=== PATIENT | female | born 1970 | race Caucasian/White ===

== ENCOUNTER → 2016-11-13 16:43 | Outpatient (CLI) | payer OTHER ==
[~2016-11-13 16:43] MED LIST: CYCLOBENZAPRINE10 MG PO; LISINOPRIL10 MG PO; MELOXICAM TAB 15M; OMEPRAZOLE CAP 20M; OXYCONTIN10 MG PO
[2016-12-25 06:23] VITALS: BMI 35.5
== END | disposition home or self-care (01) ==
LOC: D.MAMMO 10:45
DX: Z12.31 Encounter for screening mammogram for malignant neoplasm of breast (principal)

== ENCOUNTER → 2016-12-10 15:05 | Outpatient (CLI) | payer OTHER ==
[2016-12-25 06:23] VITALS: BMI 35.5
== END | disposition home or self-care (01) ==
LOC: D.MRI 15:05
DX: M54.5 Low back pain (principal); M25.561 Pain in right knee

== ENCOUNTER → 2016-12-19 17:08 | Outpatient (CLI) | payer OTHER ==
[2016-12-25 06:23] VITALS: BMI 35.5
== END | disposition home or self-care (01) ==
LOC: D.MAMMO 14:00
DX: R92.8 Other abnormal and inconclusive findings on diagnostic imaging of breast (principal)

== ENCOUNTER → 2016-12-21 14:38 | Outpatient (CLI) | payer OTHER ==
[2016-12-25 06:23] VITALS: BMI 35.5
== END | disposition home or self-care (01) ==
LOC: D.MAMMO 13:00
DX: R92.1 Mammographic calcification found on diagnostic imaging of breast (principal)

== ENCOUNTER 2016-12-25 05:19 | Day surgery (SDC) | payer OTHER ==
[2016-12-24 10:26] LABS: BASOPHILS 0.3 % (0.0-2.0); HEMOGLOBIN 17.2 g/dL (12-16); IMMATURE GRANULOCYTES 0.2 % (0-5); LYMPHOCYTES 35.3 % (15-50); MCH 31.8 pg (26.0-34.0); MCHC 33.7 g/dL (31.0-37.0); MCV 94.3 fL (80.0-100.0); MEAN PLATELET VOLUME 9.2 fL (7.4-10.4); MONOCYTES 7.8 % (2-11); NEUTROPHILS 51.4 % (40-80); PLATELET COUNT 193 10x3/uL (130-400); RBC 5.41 10x6/uL (4.00-5.40); RDW 13.4 % (11.5-14.5); WBC 6.6 10x3/uL (4.8-10.8)
[2016-12-24 10:36] LABS: CALC OSMOLALITY 277 mosm/kg (275-300); CALCIUM 8.9 mg/dL (8.5-10.1); CARBON DIOXIDE 32.2 mmol/L (21.0-32.0); CHLORIDE - SERUM 102 mmol/L (98-107); CREATININE - SERUM 0.6 mg/dL (0.6-1.3); GLUCOSE 82 mg/dL (74-106); POTASSIUM - SERUM 4.4 mmol/L (3.5-5.1); SODIUM 139 mmol/L (136-145); UREA NITROGEN 14 mg/dL (7-18); eGFR NON AFRICAN AMERICAN > 90 mL/min (90-120)
[~2016-12-25] VITALS: Ht 160 cm; Wt 90.7 kg
[~2016-12-25 05:19] MED LIST changes: -CYCLOBENZAPRINE10 MG PO; -OXYCONTIN10 MG PO
[2016-12-25 06:23] VITALS: BP 121/86; Ht 160 cm; Wt 90.7 kg
[2016-12-25] MEDS ORDERED: OXYCONTIN10 MG PO (09:09)
[2016-12-25] MEDS ORDERED: CYCLOBENZAPRINE10 MG PO (09:10)
--- NOTE | 2016-12-25 09:20 | NUR ---
THE PATIENT REPORTS CHRONIC PAIN TO HER LEFT LEG AT A 5 ON THE 0-10 SCALE BEFORE SURGERY
--- NOTE | 2016-12-25 11:58 | NUR ---
1030 IV DC WITH CATHER TIP INTACT
--- NOTE | 2017-01-01 16:33 | OP ---
PATIENT NAME: JOSUE ELLIS MEDICAL RECORD: [id number] :68 LOCATION:[facility] ADMISSION DATE: SURGEON: DANETTE ALEXANDER MD DATE OF OPERATION: 12/25/2016 PREOPERATIVE DIAGNOSIS: Right knee anterior cruciate ligament tear and medial meniscus tear. POSTOPERATIVE DIAGNOSES: 1. Right knee anterior cruciate ligament tear. 2. Right knee medial meniscus tear. 3. Right knee lateral meniscus tear. PROCEDURE PERFORMED: 1. Right knee ACL reconstruction using allograft. 2. Right knee partial medial meniscectomy. 3. Right knee partial lateral meniscectomy. SURGEON: Leno Alexander MD. ANESTHESIA: General with a block for postop pain. CONDITION: The patient tolerated the procedure well, was transferred to the recovery room in stable condition at the end of the procedure. OPERATIVE REPORT: The patient was taken to the operating room, placed in a supine position. General anesthesia was obtained. She did receive a block in the preop holding area. In the operating room, under general anesthesia, she has a physical exam performed which showed she had a positive Jose and positive pivot shift. Once this was accomplished, she then had her right knee prepped and draped in the standard fashion. After it was prepped and draped, the portal sites were marked and injected with 0.25% Marcaine with epinephrine. The anterolateral portal was made as well as the superior medial portal. Superior medial was used for the outflow, anterior lateral for the inflow. After this was accomplished the scope was used to verify the position of the outflow. I then proceeded, come down the medial gutter into the medial joint line; however, there was a notably a large piece of medial meniscus flipped up into the gutter. Dropping into the medial joint, I was able to verify that there was a large medial meniscus tear. An anteromedial portal was made at this juncture after the anterior medial portal was established. I then performed a partial medial meniscectomy taking off the portion of the meniscus that had flipped into the joint itself. Once this was accomplished, I then proceeded to move to the notch where the ACL was notably torn. No fibers intact. This was debrided with a shaver, debrided the notch area back where I could see the posterior wall. Once this was accomplished, I then proceeded to move to a xrhjkj-gf-btst position and checked her laterally. Laterally, she was noted to have a significant lateral meniscus tear. This was again debrided with a straight biter. Once this was accomplished, I then proceeded to move back to the notch, cleaned this area up following which I made a small incision over the anterior medial area of the knee. Doing this, I then placed the tibial aiming device, placed this into the stump of the previous ACL stump, bent the knee, flexed at 55-degree angle and placed a pin into the stump. Once it was verified, I then overdrilled this with size 10 as our allograft on the back table was measured at a size 10. I then proceeded to prep for the washer lock by placing the guide into the hole tapping this and overdrilling so that the OPERATIVE REPORT [id number] CALEBJOSUE MONICA washer would sit better on the cortex of the tibia. Once this was accomplished, I placed the jrnw-gjw-dxw guide again using a 10. I placed this in. I drilled over the top of this getting back to the back wall and verifying this prior to proceeding with drilling of the tunnel for the lateral meniscus tear. Once this was accomplished, I then proceeded to overdrilled this with a 4.5 drill bit and then drilled the first 30 mm of the tunnel and the tunnel measured between 55 and 60 mm. I then placed the marking this lyudmila on the graft. I then pulled the graft into the lyudmila on the 30 mm lyudmila, felt first locking the ToggleLoc on the lateral cortex then pulling it back verifying it was positioned then pulling the graft into the tunnel to the marked line following which I proceeded to cycle the knee through multiple cycles to really get the tension out of the graft itself. Once this was accomplished, I then proceeded to fix the tendon on the tibial side using a drill then measuring for the screw and then placing the screw while holding tension on the graft. This was place. Once this was accomplished, I then checked the knee again for Jose and the anterior drawer, these were both significantly improved. I therefore went ahead and checked the back and there was no notch impingement. There was no anterior wall impingement. I therefore cut the sutures, removed them, copiously irrigated, then closed with #1 Vicryl followed by 2-0 Vicryl then 3-0 Prolene. The portals were closed with 3-0 Prolene. She was then awakened and transferred to the recovery room in stable condition, having tolerated the procedure well. TRANSINT:[id number] Voice Confirmation ID: [id number] DOCUMENT ID: [id number] DANETTE ALEXANDER MD at 1633 CC: [id number] DICTATION DATE: 12/25/16917 ORTHOTIST: 12/25/16 1040 [facility] 12/25/16 [place] [id number] [place] [id number]
== END 2016-12-25 10:45 | disposition home or self-care (01) ==
LOC: D.OPS 05:19 → D.PAN 07:00 → D.OPS 07:35 → D.PAN 07:35 → D.OPS 10:45
PROVIDERS: Anesthesiology
DX: S83.511A Sprain of anterior cruciate ligament of right knee, initial encounter (principal); S83.241A Other tear of medial meniscus, current injury, right knee, initial encounter; S83.281A Other tear of lateral meniscus, current injury, right knee, initial encounter

== ENCOUNTER → 2017-04-19 08:32 | Outpatient (CLI) | payer OTHER ==
[2016-12-25 06:23] VITALS: BMI 35.5
[~2017-04-19 08:32] MED LIST changes: +CYCLOBENZAPRINE10 MG PO; +OXYCONTIN10 MG PO
== END | disposition home or self-care (01) ==
LOC: D.CT 08:30
DX: M48.06 Spinal stenosis, lumbar region (principal)

== ENCOUNTER → 2017-08-01 10:33 | Outpatient (CLI) | payer MEDICAID ==
[2016-12-25 06:23] VITALS: BMI 35.5
[~2017-08-01 10:33] MED LIST changes: +CYMBALTA60 MG PO; +MORPHINE SULFAT15 M4 PO; +NEURONTIN600 MG PO; +NORCO 7.5/325 T1 TA1 PO; -OMEPRAZOLE CAP 20M; +OMEPRAZOLE20 M1 PO; +PERCOCET 5-3251 TAB PO; +XANAX0.5 MG PO
== END | disposition home or self-care (01) ==
LOC: D.MRI 10:33
DX: M25.561 Pain in right knee (principal)

== ENCOUNTER 2017-08-20 05:25 | Day surgery (SDC) | payer MEDICAID ==
[2017-08-19 11:39] LABS: HEMATOCRIT 44.5 % (36.0-48.0); HEMOGLOBIN 14.7 g/dL (12-16); MCH 32.3 pg (26.0-34.0); MCV 97.8 fL (80.0-100.0); MEAN PLATELET VOLUME 8.7 fL (7.4-10.4); RBC 4.55 10x6/uL (4.00-5.40); RDW 13.1 % (11.5-14.5); WBC 6.4 10x3/uL (4.8-10.8)
[~2017-08-20 05:25] MED LIST changes: -PERCOCET 5-3251 TAB PO
[2017-08-20 11:51] VITALS: BP 141/84; BMI 39.7
[2017-08-20] MEDS ORDERED: PERCOCET 5-3251 TAB PO (14:11)
--- NOTE | 2017-08-20 14:30 | NUR ---
THE PATIENT IS SLEEPING AND WHEN AWAKENED SHE COMPLAINS OF A PAIN OF 8. SHE ALSO REPORTS HER PAIN EVERYDAY IS AND 8. SHE REPORTS TAKING NORCO AND MORPHINE DAILY FOR CHRONIC PAIN. THE PATIENT DOES NOT APPEAR TO BE IN ANY DISTRESS.
--- NOTE | 2017-08-20 15:40 | NUR ---
LEFT HAND PIV DC'D WITH TIP INTACT. PATIENT DRESSING IN PERSONAL CLOTHING. PATIENT WANTS TO TALK TO DR EVANS IF POSSIBLE, STATES THAT HE DIDN'T TALK TO FAMILY AFTER SURGERY, WANTS TO WAIT TO TALK TO HIM WHEN HE'S FINISHED WITH CURRENT SURGERY
--- NOTE | 2017-08-20 16:12 | OP ---
PATIENT NAME: JOSUE MARX MEDICAL RECORD: [id number] :68 LOCATION:[facility] ADMISSION DATE: SURGEON: FRANCISCO EVANS DO DATE OF OPERATION: 08/20/2017 PROCEDURE PERFORMED: Right knee arthroscopy with partial medial meniscectomy and abrasion chondroplasty of the patella. PREOPERATIVE DIAGNOSIS: Medial meniscal tear of the right knee. 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 INDICATIONS: Ms. Marx is a 47-year-old female that underwent an ACL reconstruction sometime ago and did okay with that as far as stability goes, but she has continued to have knee pain and an MRI was done a few weeks ago, which showed the medial meniscal tear. It was discussed with her what she would like to do. She said she would like to have it trimmed out and to hopefully alleviate some of the pain. A discussion was had with her that it could be due to her age and the trauma in the past to the knee. She could have some arthritis in there that this may not make her a whole lot better and due also to her weight that it may not help; however, she wanted to have it done in hopes of relieving some of her pain. SURGEON: Francisco Evans DO DESCRIPTION OF THE PROCEDURE: The patient was taken to the operative suite, laid in supine position, given general anesthetic, given 2 grams of Ancef preoperatively. Once this was done, time out was performed and everyone was in agreement with the correct site, side, and the patient. Then the right leg was prepped and draped in sterile fashion. Procedure then commenced with the lateral portal being made first with the knee flexed approximately 90 degrees. The trocar was entered into the knee and the camera was entered into the suprapatellar pouch of the knee in extension. When the camera was entered, it was noticed that grade III chondromalacia of the patella as mostly in the central portion, slightly off to the medial side. The lateral gutter was then inspected and seen to have a loose body appeared to be a piece of cartilage that had broken off. Then, the medial gutter was inspected. No loose bodies were seen there and the knee was flexed down and the medial compartment was opened up. A medial portal was then established with an 11-blade scalpel. Once this was done, a probe was placed in the knee and the medial meniscal tear was noted. This was chewed out with an upbiter and a shaver. Once this was chewed back to a stable spot, it was probed and seen to be very stable and not torn. Then, as the medial compartment was inspected, a grade IV chondromalacia was seen on the tibia as well as the femur. There was absolutely no cartilage in both the spots of the weightbearing portion of the femur and tibia. The ACL was then inspected with a probe and seen to be a very good position and holding well. The probe was then placed in the lateral compartment with the knee in wygdtv-gw-adur and the lateral compartment was inspected. No meniscal tears were seen. There were no loose bodies and the cartilage seemed to be in good condition there. The knee was then brought into extension. Again, the lateral gutter was inspected for the loose body, which was not there and then the suprapatellar pouch was inspected and a shaver was turned on to suction any loose bodies that may have been in the knee and none were found. Then, abrasion chondroplasty was done on OPERATIVE REPORT [id number] JOSUE MARX the patella. Once this was done, the water was turned off and suction was turned on to remove excess water. After the camera was taken out, 4-0 Monocryl was used to close the portal sites in an inverted interrupted fashion. Steri-Strips Adaptic, 4 x 4's, ABDs and Webril were placed over the knee and a 6-inch Jose Enrique was placed over that and TULIO hose was placed up to the knee. The patient was awakened and taken to recovery in stable condition. BLOOD LOSS: Minimal. COMPLICATIONS: None. TRANSINT:[id number] Voice Confirmation ID: [id number] DOCUMENT ID: [id number] FRANCISCO EVANS DO at 1612 CC: [id number] DICTATION DATE: 08/20/17 1421 ASSOCIATE DIRECTOR OF NURSING: 08/20/17 1445 [facility] [address] [place] [address]
--- NOTE | 2017-08-20 16:25 | NUR ---
DISCHARGE INSTRUCTIONS REVIEWED WITH PATIENT, DR EVANS IN TO SEE PATIENT
== END 2017-08-20 16:25 | disposition home or self-care (01) ==
LOC: D.OPS 05:25 → D.PAN 13:00 → D.OPS 13:00
PROVIDERS: Anesthesiology
DX: S83.241A Other tear of medial meniscus, current injury, right knee, initial encounter (principal); M22.41 Chondromalacia patellae, right knee; M23.41 Loose body in knee, right knee; Z01.812 Encounter for preprocedural laboratory examination

== ENCOUNTER → 2018-06-24 11:47 | Outpatient (CLI) | payer MEDICAID ==
[~2018-06-24 11:47] MED LIST changes: +BACLOFEN10 MG PO; +BIOTIN5 MG PO; +CLARITIN 10 MG10 MG PO; +DESERYL100 MG PO; +ELIQUIS2.5 MG PO; +HYDROCODON-ACE1 EAC7 PO; +KEFLEX500 MG PO; +MINIPRESS1 MG PO; +MIRAPEX1 MG PO; +NAPROSYN500 MG PO; +NORCO 10-325 TA1 TAB PO; +PERCOCET 5-3251 TAB PO; +POTASSIUM99 M1 PO; +SUDAFED 12-HOU120 MG PO; +VISTARIL50 MG PO; +XANAX0.25 MG PO; -XANAX0.5 MG PO; +ZANTAC150 MG PO; +ZOLOFT50 MG PO
== END | disposition home or self-care (01) ==
LOC: D.LABREF 11:47
DX: M17.11 Unilateral primary osteoarthritis, right knee (principal); Z11.8 Encounter for screening for other infectious and parasitic diseases

== ENCOUNTER → 2018-06-25 12:12 | Outpatient (CLI) | payer MEDICAID | END | disposition home or self-care (01) | LOC: D.LABREF 12:12 | DX: M17.11 Unilateral primary osteoarthritis, right knee (principal); Z11.8 Encounter for screening for other infectious and parasitic diseases ==

== ENCOUNTER 2018-07-02 08:00 | Outpatient (CLI) | payer MEDICAID ==
[~2018-07-02 08:00] MED LIST changes: -ELIQUIS2.5 MG PO; -KEFLEX500 MG PO; -NORCO 10-325 TA1 TAB PO; -VISTARIL50 MG PO
[2018-07-09 12:03] VITALS: BMI 43.7
== END 2018-07-02 08:01 | disposition home or self-care (01) ==
LOC: D.OPS 08:00
DX: M19.90 Unspecified osteoarthritis, unspecified site (principal); Z01.810 Encounter for preprocedural cardiovascular examination; Z01.811 Encounter for preprocedural respiratory examination; Z01.812 Encounter for preprocedural laboratory examination; Z53.9 Procedure and treatment not carried out, unspecified reason

== ENCOUNTER 2018-07-02 10:00 | Inpatient (IN) | payer MEDICAID ==
[~2018-07-02] VITALS: Ht 157.5 cm; Wt 108.4 kg
--- NOTE | ~2018-07-02 | OP ---
PATIENT NAME: JOSUE MARX MEDICAL RECORD: [id number] :68 LOCATION:D[id number] ADMISSION DATE:07/08/18 SURGEON: FRANCISCO EVANS DO DATE OF OPERATION: 07/08/2018 PROCEDURE PERFORMED: Right total knee arthroplasty. PREOPERATIVE DIAGNOSIS: Right knee osteoarthritis. POSTOPERATIVE DIAGNOSIS: Right knee osteoarthritis. INDICATIONS: Ms. Marx is a 47-year-old female who presented to my office last year with continuing right knee pain. She had ACL reconstruction in the past. She had meniscal tears. She kept pulling where I scoped her knee last year due to degenerative tear and on that scope severe zted-bz-smga arthritis was noted in the medial compartment as well as on the patella with grade III changes in the patella. She did okay first couple of months and got worse. She waited as long as she could and I informed her that the next step would be total knee. She was okay with that and was tired of dealing with the pain that was affecting her activities of daily living and would like it done. I told her she was at a young age to do it and she may require revision in the future. Again, she was okay with that and she consented to the procedure. She is aware of the risks and the benefits of the procedure including infection, bleeding, damage to nerves and vessels, blood clots, and even . She consented to the procedure. SURGEON: Francisco Evans DO DESCRIPTION OF PROCEDURE: The patient was given a block preoperatively by anesthesia and taken to the operative suite, laid in supine position, given general anesthetic, given 80 units of gentamicin and 2 grams of Ancef preoperatively. After this was done, a timeout was performed, everyone was in agreement with the correct side, site, patient, and procedure. The knee had been prepped and draped in sterile fashion. Incision was then marked out and Ioban was placed over that. Incision then began down to the capsule itself. The tourniquet was not used during this procedure. The incision was made down to the capsule and careful coagulation was made with Aquamantys during the procedure. Then, the medial parapatellar approach was done down to the knee joint itself. The screw from her previous ACL surgery on the medial tibia was removed. Once this was removed, the patella was everted. Fat pad was removed and the patella was milled, sized to be a 31. The knee was then flexed up and the intramedullary guide was placed in the femur and the distal femur was cut. Once the distal femur was cut, the guide was removed. The tibia was exposed and the tibia was cut. Then, the knee was brought out to extension and the menisci were removed and again coagulation was done throughout the case with Aquamantys. Posterior capsule and medial and lateral geniculate arteries were coagulated with Aquamantys. The tibia then had to be recut, the extension block did not fit. Once the tibia was recut with the extension block, the femur was sized to be a 62.5. The trial was put on the tibial tray was floated into place and the rotation was marked. Once rotation was marked, the tibial tray was removed and the femur was drilled and the patella was drilled. The tibia was then exposed and sized to be a 67. We did a modular finned stem due to the tibial screw that had been in there from the ACL to bypass up to avoid a possible collapse of the medial side of the tibia. This was punched and irrigated thoroughly and then the cement was placed on the tibia and into the tibia itself and the stem was OPERATIVE REPORT [id number] JOSUE MARX impacted into place. The tibial tray was impacted into place. Once this was done, the excess cement was removed and then the femur was put on the press fit femur and then the patella was squeezed down while the cement dried. Excess cement was removed. At that time, the knee was thoroughly irrigated throughout the procedure and at this point, very thoroughly irrigated. Once the cement had dried, the 10 poly had been placed in between the femur and the tibia and trialed with a 12, the [address] and seemed to fit very well, had a good solid fit with good stability. The knee was then irrigated and the actual poly was put in cruciate retaining and then the pin was put into place to lock the tibial poly into place. Once the knee was irrigated, Surgicel beads were placed and vancomycin powder was also placed and the capsule was then closed with #1 Vicryl and also overran with #1 Stratafix. All the capsule was then irrigated and more Surgicel and vancomycin powder was placed there. The skin was then closed with 2-0 Vicryl in inverted interrupted fashion and ZipLine was placed on the knee for skin closure. Adaptic, 4 x 4's, ABD and Webril and Jose Enrique wrap were then placed over the knee and a TULIO hose stockinette was placed up to the knee. The patient was then awakened and taken to recovery in stable condition. Blood loss was 200 mL and complications were none. TRANSINT:[id number] Voice Confirmation ID: [id number] DOCUMENT ID: [id number] FRANCISCO EVANS DO at 1241 CC: [id number] DICTATION DATE: 07/08/18 1100 AUTOMATIC MACHIN[employer] SUPERVISOR: 07/08/18 1128 ADM IN [facility] [address] [place] [id number]
[2018-07-02 11:47] LABS: BASOPHILS 0.1 % (0-2); EOSINOPHILS 4.3 % (0-7); HEMATOCRIT 44.6 % (36.0-48.0); HEMOGLOBIN 14.7 g/dL (12-16); IMMATURE GRANULOCYTES 0.2 % (0-5); LYMPHOCYTES 27.1 % (15-50); MCH 30.8 pg (26.0-34.0); MCV 93.5 fL (80.0-100.0); MEAN PLATELET VOLUME 9.1 fL (7.4-10.4); MONOCYTES 6.5 % (2-11); NEUTROPHILS 61.8 % (40-80); PLATELET COUNT 213 10x3/uL (130-400); RBC 4.77 10x6/uL (4.00-5.40); WBC 8.4 10x3/uL (4.8-10.8)
[2018-07-02 11:51] LABS: APPEARANCE HAZY (CLEAR); BILIRUBIN NEGATIVE (NEGATIVE); COLOR YELLOW (YELLOW); GLUCOSE NEGATIVE (NEGATIVE); KETONE NEGATIVE (NEGATIVE); NITRITE NEGATIVE (NEGATIVE); PROTEIN NEGATIVE (NEGATIVE); UROBILINOGEN NORMAL (NORMAL)
[2018-07-02 11:58] LABS: APTT 26.8 SECONDS (22.8-39.4); CALC OSMOLALITY 281 mosm/kg (275-300); CALCIUM 8.2 mg/dL (8.5-10.1); CARBON DIOXIDE 30.6 mmol/L (21.0-32.0); CHLORIDE - SERUM 102 mmol/L (98-107); CREATININE - SERUM 0.7 mg/dL (0.6-1.3); GLUCOSE 113 mg/dL (74-106); INR 0.95 (0.85-1.17); POTASSIUM - SERUM 4.9 mmol/L (3.5-5.1); PROTIME 12.3 SECONDS (11.6-15.0); SODIUM 139 mmol/L (136-145); UREA NITROGEN 22 mg/dL (7-18); eGFR NON AFRICAN AMERICAN > 90 mL/min (90-120)
[2018-07-08 07:10] VITALS: BP 122/79; BMI 44.0
[2018-07-08 11:50] VITALS: BP 102/64; BMI 43.8
[2018-07-08 13:27] VITALS: BP 107/38
[2018-07-08 17:44] VITALS: BP 114/49
[2018-07-08 21:10] VITALS: BP 98/43
[2018-07-09 05:07] VITALS: BP 112/64
[2018-07-09 05:08] LABS: BASOPHILS 0 % (0-2); EOSINOPHILS 1.1 % (0-7); HEMATOCRIT 35.2 % (36.0-48.0); HEMOGLOBIN 11.5 g/dL (12-16); IMMATURE GRANULOCYTES 0.3 % (0-5); LYMPHOCYTES 19.4 % (15-50); MCH 30.3 pg (26.0-34.0); MCHC 32.7 g/dL (31.0-37.0); MCV 92.6 fL (80.0-100.0); MEAN PLATELET VOLUME 8.9 fL (7.4-10.4); MONOCYTES 9.3 % (2-11); NEUTROPHILS 69.9 % (40-80); RDW 14.5 % (11.5-14.5); WBC 8.9 10x3/uL (4.8-10.8)
[2018-07-09 05:21] LABS: PLATELET COUNT 156 10x3/uL (130-400)
[2018-07-09 05:47] LABS: ALBUMIN 2.6 g/dL (3.4-5.0); ALKALINE PHOSPHATASE 69 U/L (46-116); ALT (SGPT) 46 U/L (10-68); BILIRUBIN - TOTAL 0.25 mg/dL (0.2-1.3); CALC OSMOLALITY 280 mosm/kg (275-300); CARBON DIOXIDE 29.1 mmol/L (21.0-32.0); CHLORIDE - SERUM 105 mmol/L (98-107); CREATININE - SERUM 0.7 mg/dL (0.6-1.3); GLUCOSE 122 mg/dL (74-106); POTASSIUM - SERUM 3.8 mmol/L (3.5-5.1); PROTEIN - SERUM 6.1 g/dL (6.4-8.2); SODIUM 140 mmol/L (136-145); UREA NITROGEN 14 mg/dL (7-18); eGFR NON AFRICAN AMERICAN > 90 mL/min (90-120)
[2018-07-09 08:48] VITALS: BP 102/49
[2018-07-09 12:03] VITALS: Ht 157.5 cm; Wt 108.4 kg
[2018-07-09 12:10] VITALS: BP 103/34
[2018-07-09] MEDS ORDERED: NORCO 10-325 TA1 TAB PO (15:26)
[2018-07-09] MEDS ORDERED: KEFLEX500 MG PO (15:27)
[2018-07-09] MEDS ORDERED: VISTARIL50 MG PO (15:27)
[2018-07-09] MEDS ORDERED: ELIQUIS2.5 MG PO (15:29)
== END 2018-07-09 16:40 | disposition home health service (06) | DRG 470 ==
LOC: D.SDCHOLD 10:00 → D.MS 07-08 05:05 → D.SDCHOLD 07-08 05:05 → D.MS 07-08 11:34
PROVIDERS: Family Medicine; Orthopaedic Surgery
PROC: 0SRC0J9 Replacement of Right Knee Joint with Synthetic Substitute, Cemented, Open Approach (ICD-10-PCS; principal; 2018-07-08 08:00)
DX: M17.11 Unilateral primary osteoarthritis, right knee (principal); D62 Acute posthemorrhagic anemia; F17.203 Nicotine dependence unspecified, with withdrawal; I10 Essential (primary) hypertension; F41.9 Anxiety disorder, unspecified

== ENCOUNTER → 2018-07-30 11:22 | Outpatient (CLI) | payer MEDICAID ==
[2018-07-09 12:03] VITALS: BMI 43.7
[~2018-07-30 11:22] MED LIST changes: +ELIQUIS2.5 MG PO; +KEFLEX500 MG PO; +NORCO 10-325 TA1 TAB PO; +VISTARIL50 MG PO
[2018-07-30 13:40] LABS: BASOPHILS 0.3 % (0-2); EOSINOPHILS 6.1 % (0-7); HEMATOCRIT 40.3 % (36.0-48.0); HEMOGLOBIN 12.7 g/dL (12-16); IMMATURE GRANULOCYTES 0.5 % (0-5); LYMPHOCYTES 30.4 % (15-50); MCH 29.7 pg (26.0-34.0); MCHC 31.5 g/dL (31.0-37.0); MCV 94.2 fL (80.0-100.0); MEAN PLATELET VOLUME 8.9 fL (7.4-10.4); MONOCYTES 10.8 % (2-11); NEUTROPHILS 51.9 % (40-80); RBC 4.28 10x6/uL (4.00-5.40); RDW 14.8 % (11.5-14.5); WBC 6.2 10x3/uL (4.8-10.8)
[2018-07-30 13:56] LABS: PLATELET COUNT 262 10x3/uL (130-400)
[2018-07-30 15:12] LABS: ERYTHROCYTE SEDIMENTATION RATE 19 mm/hr (0-20)
== END | disposition home or self-care (01) ==
LOC: D.LABREF 11:22
PROVIDERS: Orthopaedic Surgery
DX: M25.561 Pain in right knee (principal)

== ENCOUNTER → 2018-12-01 08:01 | Outpatient (CLI) | payer MEDICAID ==
[2018-07-09 12:03] VITALS: BMI 43.7
== END | disposition home or self-care (01) ==
LOC: D.RAD 08:00
DX: R10.9 Unspecified abdominal pain (principal); K21.9 Gastro-esophageal reflux disease without esophagitis; R11.2 Nausea with vomiting, unspecified; R13.10 Dysphagia, unspecified

== ENCOUNTER → 2018-12-09 11:09 | Outpatient (CLI) | payer MEDICAID ==
[2018-07-09 12:03] VITALS: BMI 43.7
== END | disposition home or self-care (01) ==
LOC: D.NM 12-05 09:30
DX: R10.9 Unspecified abdominal pain (principal); K21.9 Gastro-esophageal reflux disease without esophagitis; R11.2 Nausea with vomiting, unspecified; R13.10 Dysphagia, unspecified

== ENCOUNTER → 2019-01-16 12:34 | Outpatient (CLI) | payer MEDICAID ==
[2018-07-09 12:03] VITALS: BMI 43.7
== END | disposition home or self-care (01) ==
LOC: D.US 01-14 11:00
PROVIDERS: ATTEND Surgery
DX: I83.813 Varicose veins of bilateral lower extremities with pain (principal)

== ENCOUNTER → 2019-02-06 12:41 | Outpatient (CLI) | payer MEDICAID ==
[2018-07-09 12:03] VITALS: BMI 43.7
== END | disposition home or self-care (01) ==
LOC: D.US 12:41
PROVIDERS: ATTEND Surgery
DX: I83.813 Varicose veins of bilateral lower extremities with pain (principal)

== ENCOUNTER 2019-02-25 09:45 | Day surgery (SDC) | payer MEDICAID ==
[2019-02-24 16:01] LABS: HEMATOCRIT 43.1 % (36.0-48.0); HEMOGLOBIN 14.7 g/dL (12-16); MCH 30.6 pg (26.0-34.0); MCHC 34.1 g/dL (31.0-37.0); MCV 89.6 fL (80.0-100.0); MEAN PLATELET VOLUME 8.9 fL (7.4-10.4); RBC 4.81 10x6/uL (4.00-5.40); RDW 13.8 % (11.5-14.5); WBC 6.8 10x3/uL (4.8-10.8)
[2019-02-24 16:21] LABS: CALC OSMOLALITY 282 mosm/kg (275-300); CALCIUM 8.7 mg/dL (8.5-10.1); CARBON DIOXIDE 32.1 mmol/L (21.0-32.0); CHLORIDE - SERUM 105 mmol/L (98-107); CREATININE - SERUM 0.7 mg/dL (0.6-1.3); GLUCOSE 104 mg/dL (74-106); SODIUM 141 mmol/L (136-145); UREA NITROGEN 19 mg/dL (7-18); eGFR NON AFRICAN AMERICAN > 90 mL/min (90-120)
[~2019-02-25] VITALS: Ht 160 cm; Wt 107.5 kg
[~2019-02-25 09:45] MED LIST changes: +BUPROPION HCL150 M1 PO; -DESERYL100 MG PO; +HYDROCODON-ACE1 EAC2 PO; +IPRAT-ALBUT 0.5-3 ML UPD; +MERIBIN5 MG PO; +MOBIC7.5 MG PO; +PROTONIX40 MG PO; +TRAZODONE HCL150 MG PO; +ZANAFLEX2 M1 PO; +ZANAFLEX4 MG PO; +ZANTAC300 MG PO; +[UNRECOGNIZED DRUG - OTHER] PO
[2019-02-25 10:54] VITALS: BP 126/89; Ht 160 cm; Wt 107.5 kg
--- NOTE | 2019-02-25 18:28 | NUR ---
IV REMOVED. SPOT OF DRAINAGE TO CALF REINFORCED WITH ABD PAD AND BOBAND
--- NOTE | 2019-02-25 18:29 | NUR ---
INSTRUCTIONS AND RX GIVEN TO PT
--- NOTE | 2019-02-28 09:38 | OP ---
PATIENT NAME: JOSUE ELLIS MEDICAL RECORD: [id number] :68 LOCATION:D.OPS ADMISSION DATE: SURGEON: PAUL DERAS MD DATE OF OPERATION: 02/25/2019 PREOPERATIVE DIAGNOSES: 1. Symptomatic varicose veins of the right lower extremity. 2. Pathologic venous reflux in the right lesser saphenous vein. POSTOPERATIVE DIAGNOSES: 1. Symptomatic varicose veins of the right lower extremity. 2. Pathologic venous reflux in the right lesser saphenous vein. PROCEDURES: 1. VNUS radiofrequency ablation of the right lesser saphenous vein. The length treated was 25.5 cm. 2. Avulsion phlebectomies of the right lower extremity times 4. SURGEON: Paul Deras MD HAND FOLDER: None. BLOOD LOSS: Minimal. ANESTHESIA: General. COMPLICATIONS: None. The risks, possible complications, and alternatives to the procedure were explained to the patient. She elects to proceed. The discussion specifically included, but was not limited to, bleeding requiring emergency reoperation; infection; nerve injury; recurrent varicose veins; persistent varicose veins; and the probability that all of her symptoms would not be resolved with this procedure, namely the patient has neuropathy involving her feet and I told her that this procedure would not improve her neuropathic pain. On reviewing the standing reflux examination, it appears that the radiologist wrote that the greater saphenous vein was the refluxing vein. I spoke to Dr. Martin. He reviewed the content architect's work sheet, as did I. He also reviewed the images and he determined that the refluxing vein was actually the right lesser saphenous vein. OPERATIVE COURSE: The patient was seen in the holding area in the presence of a female nurse. With the patient standing, the varicose veins were marked. The patient agreed that all of the varicose veins were marked by magic marker and all of her symptoms and all of the varicose veins were on the right side. The patient was then conveyed to the operating room. General anesthesia was induced by the anesthesia staff. Subcutaneous Lovenox was given to the patient. The patient was supine initially. There was a single varicose vein which had been marked and an incision was accomplished. The varicose vein was avulsed with a phlebectomy hook. The patient was then turned prone. The right lower extremity was sterilely prepped and draped. Under ultrasonographic guidance, I percutaneously accessed the right lesser saphenous vein in an antegrade fashion. A guidewire was passed OPERATIVE REPORT [id number] JOSUE ELLIS easily. A small skin juliet was accomplished. A 7-Lithuanian dilator sheath was advanced. The dilator was removed. Through the sheath, a total of 10 cc of the foam sclerosant was injected and this was Asclera. There was only a total of 1 cc of the Asclera which had been foamed in normal saline. Through the sheath and over a wire, I advanced the radiofrequency catheter. I visualized this under ultrasonographic guidance. Under ultrasonographic guidance, I injected saline into the perivenular tissues in order to act as a heat sink during the radiofrequency ablation. I then placed the patient in the Trendelenburg position. The radiofrequency catheter was activated, and with each 7-cm pullback, it was activated again. The entire length treated is listed above. The sheath was then removed. Pressure was held. There were 3 more varicosities involving the posterior aspect of the right lower extremity. Small skin nicks were accomplished. Avulsion phlebectomies were performed. At no time was there any apparent nerve injury during this entire procedure. Sterile dressings were applied including a compression dressing. The patient was then extubated and conveyed to the postanesthesia care unit, where she was in stable condition. We will see her in the office in 2-3 days to remove the pressure dressing. She is going to be dismissed home on [address] as well as [place]. TRANSINT:[id number] Voice Confirmation ID: [id number] DOCUMENT ID: [id number] PAUL DERAS MD at 0938 CC: FLOR EVANS DO, ROBERTSALLI and FLOR ALVARADO [id number] DICTATION DATE: 02/25/19 1539 BRIDGE INSPECTOR: 02/25/19 1757 [facility] 02/25/19 [place] [id number] [place] [address]
== END 2019-02-25 18:29 | disposition home or self-care (01) ==
LOC: D.OPS 09:45 → D.PAN 10:15 → D.OPS 11:15
PROVIDERS: Anesthesiology; ATTEND Surgery
DX: I83.891 Varicose veins of right lower extremity with other complications (principal); I87.2 Venous insufficiency (chronic) (peripheral); Z01.812 Encounter for preprocedural laboratory examination

== ENCOUNTER → 2020-03-16 09:03 | Outpatient (CLI) | payer MEDICARE ==
[2019-02-25 10:54] VITALS: BMI 42.0
--- NOTE | ~2020-03-16 | HEMODYNAMI ---
PATIENT:JOSUE ELLIS MEDICAL RECORD: [id number] : 68 LOCATION:[facility] ADMISSION DATE: 03/16/20 Generatedon:03/16/202010:02 Patient name: JOSUE ELLIS Patient #: [id number] SSN: : 1970 Date of study: 03/16/2020 Page: Of Hemodynamic Procedure Report Patient Data Patient Demographics Procedure consent was obtained First Name: JOSUE Gender: Female Last Name: CALEB : 1970 [facility] Initial: MONICA Age: 49 year(s) Patient #: [id number] Race: Unknown Additional ID: [id number] Contact details Address: [address] State: [place] City: [place] Zip code: [address] Past Medical History Allergies: No known allergies Admission Admission Data Admission Date: 03/16/2020 Admission Time: 9:03 Procedure Procedure Types Cath Procedure Peripheral Cath Diagnostic Procedure Miscellaneous Epidural Steroid Injection Procedure Description Procedure Date Procedure Date: 03/16/2020 Procedure Start Time: 9:54 Procedure Staff Name Function Francisco Martin MD Performing Physician Gerardo Carroll RT Monitor Procedure Data Cath Procedure Fluoroscopy Diagnostic fluoroscopy Total fluoroscopy Time: 0.1 time: 0.1 min min Diagnostic fluoroscopy Total fluoroscopy dose: 3 dose: 3 mGy mGy Hemodynamics Rest Pre Cath Intra NCS Post Cath Procedure Log Time Note 9:45:04 Gerardo Carroll RT (R) (CV) sent for patient. Start room use. 9:45:05 Time tracking: Regular hours (M-F 7:00 - 5:00) 9:45:10 Patient received from Other to IR Alert and oriented. Tansferred to table in Prone position. 9:45:14 Signed procedure consent form obtained from patient. 9:45:17 - 9:45:17 Pre-procedure instructions explained to patient. 9:45:18 Pre-op teaching completed and patient verbalized understanding. 9:45:26 Patient allergic to No known allergies 9:45:33 Is patient on blood thinner?No 9:45:43 Lumbar area was prepped with betadine and draped in sterile fashion 9:50:04 Physician arrived 9:50:04 --------ALL STOP TIME OUT------ 9:50:05 Final Timeout: patient, procedure, and site verified with staff and physician. All members of the team are in agreement. 9:50:09 Lumbar site verified by team. 9:50:16 Sedation plan: Local Anesthetic Medication:Lidocaine 9:52:49 Procedure started. 9:52:50 Full Disclosure recording started 9:54:05 Local anesthetic to Lumbar area with Lidocaine 1% by Francisco Martin MD.INITIAL ACCESS ONLY 9:59:12 KIT EPIDURAL CATHETERIZATION opened to sterile field. 9:59:33 Procedure ended.(Physican Out) 9:59:45 Fluoroscopy time 00.10 minutes. 9:59:50 Fluoroscopy dose: 3 mGy 9:59:50 Flurop Dose total: 3 10:01:26 BANDAIDE APPLIED SITE STABLE PT SENT HOME Device Usage Item Name Manufacture Quantity Catalog Hospital Part Current [facility] l Lot# / Number Charge Number Stock Stock Serial# Code KIT EPIDURAL Teleflex 1 [id number] CATHETERIZATION Signature Audit Coila Stage Time Signature Unsigned Intra-Procedure 03/16/2020 Gerardo 10:01:51 AM Glen RT (R) (CV) [facility] [address] [place] [address]
== END | disposition home or self-care (01) ==
LOC: D.RAD 09:00
PROVIDERS: ATTEND Orthopaedic Surgery
DX: M51.26 Other intervertebral disc displacement, lumbar region (principal)

== ENCOUNTER → 2020-03-18 07:02 | Outpatient (CLI) | payer MEDICARE ==
[2019-02-25 10:54] VITALS: BMI 42.0
--- NOTE | 2020-03-18 08:20 | NUR ---
TIME OUT PERFORME FOR RT SHOULDER ARTHROGRAM AT 0815AM
== END | disposition home or self-care (01) ==
LOC: D.RAD 07:02 → D.MRI 09:00
PROVIDERS: ATTEND Orthopaedic Surgery
DX: S43.431A Superior glenoid labrum lesion of right shoulder, initial encounter (principal)

== ENCOUNTER 2020-04-08 09:03 | Day surgery (SDC) | payer MEDICARE ==
[~2020-04-08] VITALS: Ht 160 cm; Wt 105.2 kg
[~2020-04-08 09:03] MED LIST changes: +EZFE 200200 MG PO; +TYLENOL ARTHRI650 MG PO; +ULTRAM50 MG PO
[2020-04-08 09:42] LABS: HEMATOCRIT 44.7 % (36.0-48.0); HEMOGLOBIN 14.9 g/dL (12-16); MCHC 33.3 g/dL (31.0-37.0); MCV 98.9 fL (80.0-100.0); MEAN PLATELET VOLUME 8.9 fL (7.4-10.4); RBC 4.52 10x6/uL (4.00-5.40); RDW 13.4 % (11.5-14.5)
[2020-04-08 10:33] VITALS: BP 142/89; Ht 160 cm; Wt 105.2 kg
[2020-04-08] MEDS ORDERED: OXYCODONE HCL5 M1 PO (14:51)
[2020-04-08] MEDS ORDERED: VISTARIL50 MG PO (14:51)
--- NOTE | 2020-04-09 11:08 | OP ---
PATIENT NAME: JOSUE MARX MEDICAL RECORD: [id number] :68 LOCATION:[facility] ADMISSION DATE: SURGEON: FRANCISCO EVANS DO DATE OF OPERATION: 04/08/2020 PROCEDURE PERFORMED: Right shoulder arthroscopy, subacromial decompression, distal clavicle excision, labral debridement, biceps tenodesis and rotator cuff repair with Regeneten. PREOPERATIVE DIAGNOSIS: Right shoulder labral flap tear, supraspinatus tear, rotator cuff tear, subacromial impingement, and acromioclavicular joint arthritis. POSTOPERATIVE DIAGNOSIS: Right shoulder labral flap tear, supraspinatus tear, rotator cuff tear, subacromial impingement, and acromioclavicular joint arthritis. INDICATIONS: Ms. Marx is a 49-year-old female who presented to my office with right shoulder pain, said she was carrying a 2 x 12 and hurt her shoulder. She had an MRI, which showed the above findings and brought her to my office and informed her we need to fix that before it tore more. 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 SURGEON: Francisco Evans DO DESCRIPTION OF PROCEDURE: The patient received block by anesthesia in the preoperative area, was taken to the operative suite, laid in left lateral decubitus position with the right shoulder up and sedated and LMA was placed. The right shoulder was then prepped and draped in sterile fashion. A timeout was performed and everyone was in agreement with correct site, correct side, the patient and procedure. I then began by inserting a 18-guage spinal needle in the posterior aspect of the shoulder into the joint inflating it with 60 mL of normal saline and established posterior portal with a #11 blade scalpel into the subacromial space, established a lateral portal, anterior portal with an 18-guaze spinal needle and 11-blade scalpel with subacromial decompression, removing part of the acromion, noting the supraspinatus tear. I also, through the anterior portal, did a distal clavicle excision. Once that was opened up to approximately 7 mm,I then went to the joint and brought in a burner and did a bicep tenotomy and labral debridement. I then opened up the lateral portal and made a careful dissection down to the rotator cuff tendon, did a double row repair with a suture tape and then put Regeneten patch on top it. I then went to the anterior humerus and made an incision and carefully dissected down to the long head of biceps tendon and fished that out and put a 2.9 JuggerLoc loops in bicep tenodesis anchor and looped the tendon through the loop and then cinched it down and then cut the loop and used a free needle to go back through the tendon and tied that down and cut the excess tendon and suture. I then irrigated the sites with normal saline. Tesfaye Coley, board certified orthodontist, closed the open sites, biceps tenodesis and open rotator cuff repair with 2-0 Vicryl in inverted interrupted fashion, 4-0 Monocryl running on the skin and 4-0 Monocryl in inverted interrupted fashion on the anterior and posterior portal sites. Dermabond glue was then placed on all of them. She was dressed with Telfa, Tegaderm, awakened and taken to recovery room, put in a ting sling in, stable condition. OPERATIVE REPORT [id number] CALEBJOSUE MONICA BLOOD LOSS: Minimal. COMPLICATION: None. TRANSINT:[id number] Voice Confirmation ID: [id number] DOCUMENT ID: [id number] FRANCISCO EVANS DO at 1108 CC: [id number] DICTATION DATE: 04/08/20 1635 ENGINEER SPECIALIST: 04/09/20 0027 [facility] 04/08/20 [place] [id number] [place] [id number]
== END 2020-04-08 17:40 | disposition home or self-care (01) ==
LOC: D.OPS 09:03 → D.PAN 12:30 → D.OPS 12:55
PROVIDERS: Anesthesiology; ATTEND Orthopaedic Surgery
DX: S43.401A Unspecified sprain of right shoulder joint, initial encounter (principal); M25.811 Other specified joint disorders, right shoulder; M19.011 Primary osteoarthritis, right shoulder; K21.9 Gastro-esophageal reflux disease without esophagitis; I10 Essential (primary) hypertension; F17.200 Nicotine dependence, unspecified, uncomplicated; M17.11 Unilateral primary osteoarthritis, right knee; M25.511 Pain in right shoulder; M51.26 Other intervertebral disc displacement, lumbar region; X58.XXXA Exposure to other specified factors, initial encounter

== ENCOUNTER → 2020-06-23 10:09 | Day surgery (SDC) | payer MEDICARE ==
[2020-04-08 10:33] VITALS: BMI 41.1
--- NOTE | ~2020-06-23 | HEMODYNAMI ---
PATIENT:JOSUE ELLIS MEDICAL RECORD: [id number] : 68 LOCATION:[facility] ADMISSION DATE: 06/23/20 Generatedon:06/23/202011:20 Patient name: JOSUE ELLIS Patient #: [id number] SSN: : 1970 Date of study: 06/23/2020 Page: Of Hemodynamic Procedure Report Patient Data Patient Demographics First Name: JOSUE Gender: Female Last Name: CALEB : 1970 [facility] Initial: MONICA Age: 49 year(s) Patient #: [id number] Race: Unknown Additional ID: [id number] Contact details Address: [address] [place] [place] [facility] Zip code: [address] Past Medical History Allergies: No known allergies Admission Admission Data Admission Date: 06/23/2020 Admission Time: 10:09 Procedure Procedure Types Cath Procedure Peripheral Cath Diagnostic Procedure Valve Technician Peripheral Procedures Miscellaneous Epidural Steroid Injection Procedure Description Procedure Date Procedure Date: 06/23/2020 Procedure Start Time: 11:00 Procedure Staff Name Function Mason Membreno MD Performing Physician April Goetz RT Collections Clerk Procedure Data Cath Procedure Fluoroscopy Diagnostic fluoroscopy Total fluoroscopy Time: 1 time: 1 min min Diagnostic fluoroscopy Total fluoroscopy dose: 19 dose: 19 mGy mGy Hemodynamics Rest Pre Cath Intra NCS Post Cath Procedure Log Time Note 10:38:31 KIT EPIDURAL CATHETERIZATION opened to sterile field. 10:59:40 - 11:00:06 Popliteal region area was prepped with chlora-prep and draped in steril e fashion 11:00:14 Lumbar area was prepped with betadine and draped in sterile fashion 11:00:16 - 11:00:25 Physician arrived 11:00:26 --------ALL STOP TIME OUT------ 11:00:27 Final Timeout: patient, procedure, and site verified with staff and physician. All members of the team are in agreement. 11:00:44 Procedure started. 11:00:45 Full Disclosure recording started 11:00:49 Local anesthetic to Lumbar area with Lidocaine 1% by Mason Membreno MD.INITIAL ACCESS ONLY 11:11:39 Procedure ended.(Physican Out) 11:19:33 Fluoroscopy time 01.00 minutes. 11:19:40 Flurop Dose total: 19 11:19:40 Fluoroscopy dose: 19 mGy 11:19:43 Procedure and supply charges have been captured, reviewed, submitted an d are correct. Device Usage Item Name Manufacture Quantity Catalog Hospital Part Current Minima l Lot# / Number Charge Number Stock Stock Serial# Code KIT EPIDURAL Teleflex 1 [id number] CATHETERIZATION Signature Audit [place] Stage Time Signature Unsigned Intra-Procedure 06/23/2020 April Goetz 11:20:13 AM RT(R) [facility] [address] [place] [address]
[~2020-06-23 10:09] MED LIST changes: +OXYCODONE HCL5 M1 PO
== END | disposition home or self-care (01) ==
LOC: D.RAD 10:09
PROVIDERS: ATTEND Orthopaedic Surgery
DX: M54.16 Radiculopathy, lumbar region (principal)

== ENCOUNTER 2021-03-17 09:56 | Emergency (ER) | payer MEDICARE ==
[~2021-03-17] VITALS: Ht 160 cm; Wt 100.5 kg
[2021-03-17 09:58] VITALS: Ht 160 cm; Wt 100.5 kg
[2021-03-17] MEDS ORDERED: HYDROCODON-ACE1 EA10 PO (10:02)
[2021-03-17 10:10] VITALS: BP 129/72
[2021-03-17 10:47] LABS: CALC OSMOLALITY 293 mosm/kg (275-300); CALCIUM 9.4 mg/dL (8.5-10.1); CARBON DIOXIDE 31.1 mmol/L (21.0-32.0); CHLORIDE - SERUM 106 mmol/L (98-107); CREATININE - SERUM 0.7 mg/dL (0.6-1.3); GLUCOSE 105 mg/dL (74-106); POTASSIUM - SERUM 4.1 mmol/L (3.5-5.1); SODIUM 145 mmol/L (136-145); UREA NITROGEN 26 mg/dL (7-18); eGFR NON AFRICAN AMERICAN > 90 mL/min (90-120)
[2021-03-17 10:48] LABS: BASOPHILS 0.8 % (0-2); EOSINOPHILS 1.2 % (0-7); HEMATOCRIT 46.9 % (36.0-48.0); HEMOGLOBIN 15.6 g/dL (12-16); LYMPHOCYTES 14.6 % (15-50); MCH 31.1 pg (26.0-34.0); MCHC 33.4 g/dL (31.0-37.0); MCV 93.3 fL (80.0-100.0); MEAN PLATELET VOLUME 6.9 fL (7.4-10.4); MONOCYTES 6.5 % (2-11); NEUTROPHILS 76.9 % (40-80); RBC 5.02 10x6/uL (4.00-5.40); RDW 14.2 % (11.5-14.5)
[2021-03-17 10:52] LABS: PLATELET COUNT 287 10x3/uL (130-400)
[2021-03-17 10:56] LABS: ALBUMIN 3.9 g/dL (3.4-5.0); ALKALINE PHOSPHATASE 90 U/L (30-120); ALT (SGPT) 51 U/L (10-68); AMYLASE - SERUM 30 U/L (25-115); LIPASE 73 U/L (73-393); PROTEIN - SERUM 7.8 g/dL (6.4-8.2)
[2021-03-17 10:57] LABS: TROPONIN-I < 0.017 ng/mL (0.000-0.060)
[2021-03-17 11:07] LABS: BILIRUBIN NEGATIVE (NEGATIVE); KETONE NEGATIVE (NEGATIVE); NITRITE NEGATIVE (NEGATIVE); UROBILINOGEN NORMAL mg/dL (< 2)
[2021-03-17 11:08] LABS: BACTERIA NONE SEEN HPF (NONE SEEN); SQUAMOUS EPITHELIAL 0-5 HPF (0-4); WHITE CELLS - URINE 0-5 HPF (0-4)
[2021-03-17] MEDS ORDERED: DICLOFENAC SODI50 MG PO (12:06)
[2021-03-17] MEDS ORDERED: HYDROCODON-ACE1 EAC7 PO (12:06)
[2021-03-17] MEDS ORDERED: FLOMAX0.4 MG PO (12:06)
[2021-03-17] MEDS ORDERED: ZOFRAN ODT4 MG/UDTAB PO (12:11)
== END 2021-03-17 12:26 | disposition home or self-care (01) ==
LOC: D.ER 09:56
PROVIDERS: Emergency Medicine
DX: N20.0 Calculus of kidney (principal); R10.9 Unspecified abdominal pain; R31.9 Hematuria, unspecified; R91.1 Solitary pulmonary nodule; K76.0 Fatty (change of) liver, not elsewhere classified; G62.9 Polyneuropathy, unspecified; I10 Essential (primary) hypertension; K21.9 Gastro-esophageal reflux disease without esophagitis; Z72.0 Tobacco use